=== PATIENT | male | born 1935 | race Caucasian/White ===

== ENCOUNTER → 2016-12-22 | Outpatient (CLI) | payer OTHER ==
[~2016-12-22] VITALS: Ht 177.8 cm; Wt 91.6 kg
[~2016-12-22] MED LIST: ACTOPLUS MET1 TABLET PO; ACTOS45 MG PO; ADVAIR 500/501 DISK IH; AMARYL1 MG PO; ASPIRIN81 M2 PO; ASTELIN137 MCG/0. BOTH NARES; CENTRUM SILVER1 EAC3 PO; COLACE100 MG PO; DALIRESP500 MCG PO; DUONEB 2.5-0.5 M3 ML IH; FIBERCON625 MG PO; FLONASE16 G1 BOTH NARES; FUROSEMIDE40 MG PO; IRON18 MG PO; IRON325 M1 PO; KLOR-CON 1010 ME1 PO; LIPITOR80 MG PO; LO-DOSE ASPIRIN81 M2 PO; MAGNESIUM OXID500 MG PO; MAGNESIUM250 MG PO; OMEPRAZOLE40 M1 PO; POTASSIUM CHLO10 MEQ PO; PRINIVIL5 MG PO; SINGULAIR10 MG PO; VITAMIN D-32000 UNI1 PO; VITAMIN D31000 UNIT PO; VYTORIN 10/81 TABLET PO; ZITHROMAX500 MG PO; ZOLOFT50 MG PO
[2016-12-22 11:01] LABS: POINT-OF-CARE METER ID UU14174212
[2016-12-22 12:45] LABS: POINT-OF-CARE METER ID UU13113819
== END | disposition home or self-care (01) ==
LOC: AMB 10:04
PROVIDERS: Internal Medicine Gastroenterology
DX: C18.4 Malignant neoplasm of transverse colon (principal); D12.0 Benign neoplasm of cecum; K63.5 Polyp of colon; K57.90 Diverticulosis of intestine, part unspecified, without perforation or abscess without bleeding; I10 Essential (primary) hypertension; J44.9 Chronic obstructive pulmonary disease, unspecified; E11.9 Type 2 diabetes mellitus without complications; K22.4 Dyskinesia of esophagus; K21.9 Gastro-esophageal reflux disease without esophagitis; D50.0 Iron deficiency anemia secondary to blood loss (chronic); Z79.899 Other long term (current) drug therapy; Z86.010 Personal history of colon polyps; Z87.891 Personal history of nicotine dependence; Z79.84 Long term (current) use of oral hypoglycemic drugs; Z79.82 Long term (current) use of aspirin; Z80.0 Family history of malignant neoplasm of digestive organs; Z83.3 Family history of diabetes mellitus; Z84.1 Family history of disorders of kidney and ureter
CPT/HCPCS: 82948; 88305